=== PATIENT | female | born 1995 | race Caucasian/White ===

== ENCOUNTER 2022-10-20 13:36 | Emergency (ER) | payer OTHER ==
[~2022-10-20] VITALS: Ht 175.3 cm; Wt 82.4 kg
[2022-10-20 13:50] VITALS: BP 120/78
== END 2022-10-20 15:25 | disposition left against medical advice (07) ==
LOC: ER 13:36
DX: J02.9 Acute pharyngitis, unspecified (principal); Z53.21 Procedure and treatment not carried out due to patient leaving prior to being seen by health care provider